=== PATIENT | male | born 1960 | race Caucasian/White ===

== ENCOUNTER 2022-11-28 08:32 | Emergency (ER) | payer OTHER ==
[2022-11-28 09:12] LABS: #Basophils 0.1 10x3/uL (0.0-0.2); #Eosinphils 0.1 10x3/uL (0.0-0.5); #Monocytes 0.7 10x3/uL (0.0-1.1); #Neutrophils 3.9 10x3/uL (1.5-8.4); %Eosinophils 1.9 % (0.0-6.0); %Lymphocytes 17.5 % (18.0-47.0); %Monocytes 12.6 % (0.0-10.0); %Neutrophils 66.8 % (40.0-75.0); Hematocrit 36.2 % (38.8-50.0); Hemoglobin 11.4 g/dL (13.5-17.5); Mean Corpuscular HGB CONC 31.5 g/dL (32.0-36.0); Mean Corpuscular Hemoglobin 30.6 pg (27.0-33.0); Mean Corpuscular Volume 97.1 fl (81.2-95.1); Mean Platelet Volume 12.4 fl (7.4-10.4); Platelet Count 149 10x3/uL (150-450); RBC Distribution Width 14.4 % (11.5-14.5); Red Blood Cell (RBC) Count 3.73 10x6/uL (4.32-5.72); White Blood Cell (WBC) Count 5.9 10x3/uL (3.5-10.5)
[2022-11-28 09:35] LABS: Troponin I 0.037 ng/mL (< 0.028)
[2022-11-28 09:41] LABS: ALT (SGPT) 15 U/L (8-55); Albumin 4.2 g/dL (3.5-5.0); BUN (Urea Nitrogen) 16 mg/dL (8.4-25.7); Calc. Creatinine Clearance 0 mL/min (70-130); Chloride 108 mmol/L (98-107); Estimated GFR 84; Sodium 140 mmol/L (136-145)
[2022-11-28 09:42] LABS: D-Dimer Test Less than 0.19 mg/L FEU (0.19-0.50); INR-International Normal Ratio 4.3; Prothrombin Time 45.3 sec (9.5-12.1)
[2022-11-28 11:13] LABS: AST (SGOT) 18 U/L (5-34); Alkaline Phosphatase 104 U/L (40-110); Calcium 9.4 mg/dL (7.8-10.44); Carbon Dioxide 22 mmol/L (22-29); Glucose 95 mg/dL (70-105); Potassium 4.5 mmol/L (3.5-5.1); Protein, Total 6.8 g/dL (6.0-8.3)
[2022-11-28 11:41] LABS: Troponin I 0.033 ng/mL (< 0.028)
[2022-11-28 12:03] LABS: Magnesium 2.2 mg/dL (1.6-2.6)
[2022-11-28 12:07] LABS: Anion Gap 15 mmol/L (10-20)
[2022-11-28 12:08] LABS: Globulin 2.6 g/dL (2.4-3.5)
== END 2022-11-28 12:30 | disposition home or self-care (01) ==
LOC: EEVIPCON 08:32 → CSHERS 08:32
DX: R07.9 Chest pain, unspecified (principal); I10 Essential (primary) hypertension
CPT/HCPCS: 71045; 80053; 83735; 83880; 84484; 85025; 85379; 85610; 85730; 93005

== ENCOUNTER 2023-02-09 18:41 | Emergency (ER) | payer OTHER ==
[2023-02-09 19:38] LABS: INR-International Normal Ratio 1.9; PTT 47.5 sec (22.0-33.0); Prothrombin Time 20.5 sec (9.5-12.1)
[2023-02-09 19:42] LABS: ALT (SGPT) 20 U/L (8-55); AST (SGOT) 24 U/L (5-34); Albumin 4.2 g/dL (3.5-5.0); Alkaline Phosphatase 95 U/L (40-110); Anion Gap 18 mmol/L (10-20); BUN (Urea Nitrogen) 29 mg/dL (8.4-25.7); Bilirubin, Total 0.5 mg/dL (0.2-1.2); Calc. Creatinine Clearance 0 mL/min (70-130); Calcium 9.4 mg/dL (7.8-10.44); Carbon Dioxide 20 mmol/L (22-29); Chloride 107 mmol/L (98-107); Estimated GFR 61; Globulin 3.3 g/dL (2.4-3.5); Glucose 96 mg/dL (70-105); Lipase 106 U/L (8-78); Magnesium 2.4 mg/dL (1.6-2.6); Potassium 4.6 mmol/L (3.5-5.1); Protein, Total 7.5 g/dL (6.0-8.3); Sodium 140 mmol/L (136-145)
[2023-02-09 19:44] LABS: #Eosinphils 0.1 10x3/uL (0.0-0.5); #Monocytes 0.6 10x3/uL (0.0-1.1); #Neutrophils 2.9 10x3/uL (1.5-8.4); %Basophils 0.7 % (0.0-2.0); %Eosinophils 1.7 % (0.0-6.0); %Lymphocytes 15.2 % (18.0-47.0); %Monocytes 14.7 % (0.0-10.0); %Neutrophils 67.7 % (40.0-75.0); Hematocrit 27.7 % (38.8-50.0); Hemoglobin 8.6 g/dL (13.5-17.5); Mean Corpuscular Volume 96.5 fl (81.2-95.1); Mean Platelet Volume 12.9 fl (7.4-10.4); Platelet Count 101 10x3/uL (150-450); RBC Distribution Width 15.9 % (11.5-14.5); Red Blood Cell (RBC) Count 2.87 10x6/uL (4.32-5.72); White Blood Cell (WBC) Count 4.2 10x3/uL (3.5-10.5)
[2023-02-09 19:48] LABS: Troponin I 0.036 ng/mL (< 0.028)
== END 2023-02-09 20:52 | disposition still patient (30) ==
LOC: EEVIPCON 18:41 → CSHERS 18:41
DX: S80.12XA Contusion of left lower leg, initial encounter (principal); R07.89 Other chest pain; R53.83 Other fatigue; I10 Essential (primary) hypertension; W18.2XXA Fall in (into) shower or empty bathtub, initial encounter
CPT/HCPCS: 71045; 80053; 83690; 83735; 83880; 84443; 84484; 85025; 85610; 85730; 93005

== ENCOUNTER 2023-06-09 03:27 | Emergency (ER) | payer OTHER | END 2023-06-09 06:20 | disposition home or self-care (01) | LOC: CSHERS 03:27 → EEVIPCON 03:27 → CSHERS 06:20 | DX: R04.0 Epistaxis (principal); I48.91 Unspecified atrial fibrillation; E03.9 Hypothyroidism, unspecified; K21.9 Gastro-esophageal reflux disease without esophagitis; I11.0 Hypertensive heart disease with heart failure; I50.9 Heart failure, unspecified; Z79.01 Long term (current) use of anticoagulants; Z95.0 Presence of cardiac pacemaker; Z79.02 Long term (current) use of antithrombotics/antiplatelets; Z79.890 Hormone replacement therapy; Z79.899 Other long term (current) drug therapy | CPT/HCPCS: 99283 ==

== ENCOUNTER 2023-09-13 06:09 | Inpatient (IN) | payer OTHER ==
[2023-09-13 15:42] VITALS: BMI 20.2
[2023-09-19 20:48] VITALS: BP 132/82; TEMP 97.5
== END 2023-09-19 22:56 | disposition still patient (30) | DRG 309 ==
LOC: CSHERS 06:09 → CSHERHOLD 11:53 → EEVIPCON 11:53 → CSHTELE 15:22
PROVIDERS: ADMIT Family Medicine; ATTEND Internal Medicine
DX: I48.92 Unspecified atrial flutter (principal); I50.22 Chronic systolic (congestive) heart failure; I5A Non-ischemic myocardial injury (non-traumatic); I44.2 Atrioventricular block, complete; G62.9 Polyneuropathy, unspecified; I25.10 Atherosclerotic heart disease of native coronary artery without angina pectoris; I48.0 Paroxysmal atrial fibrillation; K74.00 Hepatic fibrosis, unspecified; I11.0 Hypertensive heart disease with heart failure; D51.9 Vitamin B12 deficiency anemia, unspecified; F20.9 Schizophrenia, unspecified; N40.0 Benign prostatic hyperplasia without lower urinary tract symptoms; K21.9 Gastro-esophageal reflux disease without esophagitis; F17.210 Nicotine dependence, cigarettes, uncomplicated; H91.90 Unspecified hearing loss, unspecified ear; Z95.0 Presence of cardiac pacemaker
CPT/HCPCS: 36415; 71045; 80048; 80053; 80061; 83735; 84100; 84439; 84443; 84481; 84484; 85025; 93005; 93306; 94760; J1650; J3475; S0028

== ENCOUNTER 2023-10-10 06:04 | Emergency (ER) | payer OTHER ==
[2023-10-10] MEDS ORDERED: Acetaminophen 500 MG TAB ONE (06:20)
[2023-10-10 06:54] LABS: #Basophils 0.05 10x3/uL (0.0-0.2); #Eosinphils 0.12 10x3/uL (0.0-0.5); #Monocytes 0.83 10x3/uL (0.0-1.1); #Neutrophils 4.26 10x3/uL (1.5-8.4); %Basophils 0.9 % (0.0-2.0); %Eosinophils 2.1 % (0.0-6.0); %Lymphocytes 9.9 % (18.0-47.0); %Monocytes 14.2 % (0.0-10.0); %Neutrophils 72.7 % (40.0-75.0); Hematocrit 32.6 % (38.8-50.0); Hemoglobin 10.5 g/dL (13.5-17.5); Mean Corpuscular HGB CONC 32.2 g/dL (32.0-36.0); Mean Corpuscular Hemoglobin 32.3 pg (27.0-33.0); Mean Corpuscular Volume 100.3 fL (81.2-95.1); Mean Platelet Volume 12.4 fL (7.4-10.4); Platelet Count 138 10x3/uL (150-450); RBC Distribution Width 16.1 % (11.5-14.5); Red Blood Cell (RBC) Count 3.25 10x6/uL (4.32-5.72); White Blood Cell (WBC) Count 5.9 10x3/uL (3.5-10.5)
[2023-10-10 06:56] LABS: ALT (SGPT) 15 U/L (8-55); AST (SGOT) 19 U/L (5-34); Albumin 3.2 g/dL (3.5-5.0); Alkaline Phosphatase 95 U/L (40-110); Anion Gap 13 mmol/L (10-20); BUN (Urea Nitrogen) 26 mg/dL (8.4-25.7); Bilirubin, Total 0.8 mg/dL (0.2-1.2); Calc. Creatinine Clearance 0 mL/min (70-130); Calcium 8.9 mg/dL (7.8-10.44); Carbon Dioxide 25 mmol/L (22-29); Chloride 103 mmol/L (98-107); Estimated GFR 71; Globulin 3.1 g/dL (2.4-3.5); Glucose 107 mg/dL (70-105); Magnesium 2.2 mg/dL (1.6-2.6); Potassium 4.2 mmol/L (3.5-5.1); Protein, Total 6.3 g/dL (6.0-8.3); Sodium 137 mmol/L (136-145)
[2023-10-10 07:02] LABS: Troponin I 0.045 ng/mL (< 0.028)
[2023-10-10 09:31] LABS: Troponin I 0.048 ng/mL (< 0.028)
[2023-10-10] MEDS ORDERED: Iopamidol 370 76% 100 ML VIAL ONE (14:36)
== END 2023-10-10 10:25 ==
LOC: CSHERS 06:04 → EEVIPCON 06:04 → CSHERS 10:25
DX: R07.89 Other chest pain (principal); I11.0 Hypertensive heart disease with heart failure; I50.9 Heart failure, unspecified; K21.9 Gastro-esophageal reflux disease without esophagitis; E78.5 Hyperlipidemia, unspecified; E03.9 Hypothyroidism, unspecified; I48.91 Unspecified atrial fibrillation; Z55.6 Problems related to health literacy; Z79.01 Long term (current) use of anticoagulants; Z79.899 Other long term (current) drug therapy; Z79.890 Hormone replacement therapy
CPT/HCPCS: 36415; 71275; 80053; 83735; 83880; 84484; 85025; 93005; Q9967

== ENCOUNTER 2023-10-15 09:49 | Emergency (ER) | payer OTHER ==
[~2023-10-15 09:49] MED LIST: Iopamidol 370 76% 100 ML VIAL ONE
[2023-10-15 10:39] LABS: #Basophils 0.08 10x3/uL (0.0-0.2); #Eosinphils 0.09 10x3/uL (0.0-0.5); #Monocytes 0.92 10x3/uL (0.0-1.1); #Neutrophils 5.03 10x3/uL (1.5-8.4); %Basophils 1.2 % (0.0-2.0); %Eosinophils 1.3 % (0.0-6.0); %Lymphocytes 10.8 % (18.0-47.0); %Monocytes 13.4 % (0.0-10.0); Hematocrit 33.5 % (38.8-50.0); Hemoglobin 10.8 g/dL (13.5-17.5); Mean Corpuscular HGB CONC 32.2 g/dL (32.0-36.0); Mean Corpuscular Hemoglobin 31.5 pg (27.0-33.0); Mean Corpuscular Volume 97.7 fL (81.2-95.1); Mean Platelet Volume 12.5 fL (7.4-10.4); Platelet Count 145 10x3/uL (150-450); RBC Distribution Width 16.1 % (11.5-14.5); Red Blood Cell (RBC) Count 3.43 10x6/uL (4.32-5.72); White Blood Cell (WBC) Count 6.9 10x3/uL (3.5-10.5)
[2023-10-15 10:56] LABS: INR-International Normal Ratio 2.3; PTT 41.2 sec (22.0-33.0); Prothrombin Time 23.7 sec (9.5-12.1)
[2023-10-15 11:03] LABS: ALT (SGPT) 12 U/L (8-55); AST (SGOT) 23 U/L (5-34); Albumin 3.3 g/dL (3.5-5.0); Alkaline Phosphatase 88 U/L (40-110); Anion Gap 17 mmol/L (10-20); BUN (Urea Nitrogen) 31 mg/dL (8.4-25.7); Bilirubin, Total 0.9 mg/dL (0.2-1.2); Calc. Creatinine Clearance 0 mL/min (70-130); Calcium 9.1 mg/dL (7.8-10.44); Carbon Dioxide 22 mmol/L (22-29); Chloride 100 mmol/L (98-107); Estimated GFR 67; Globulin 3.2 g/dL (2.4-3.5); Glucose 98 mg/dL (70-105); Lipase 55 U/L (8-78); Potassium 4.3 mmol/L (3.5-5.1); Protein, Total 6.5 g/dL (6.0-8.3); Sodium 135 mmol/L (136-145)
[2023-10-15 11:06] LABS: Troponin I 0.047 ng/mL (< 0.028)
[2023-10-15 11:23] LABS: RBC Morph Comment Within Normal Limits
[2023-10-15 11:24] LABS: Platelet Adequacy Comment Platelets Normal
[2023-10-15] MEDS ORDERED: Aspirin Chewable 81 MG TAB ONE (11:46)
[2023-10-15 12:14] LABS: Troponin I 0.045 ng/mL (< 0.028)
[2023-10-15] MEDS ORDERED: Furosemide 40 MG (4 mL) VIAL ONE (12:26)
== END 2023-10-15 15:26 | disposition short-term general hospital (02) ==
LOC: CSHERS 09:49 → EEVIPCON 09:49 → CSHERS 15:26
DX: I21.4 Non-ST elevation (NSTEMI) myocardial infarction (principal); I11.0 Hypertensive heart disease with heart failure; I50.9 Heart failure, unspecified; Z95.0 Presence of cardiac pacemaker
CPT/HCPCS: 36415; 71275; 74177; 80053; 83690; 83880; 84484; 85025; 85610; 85730; 93005; 96374; J1940; Q9967